=== PATIENT | male | born 1960 | race American Indian/Alaskan Native ===

== ENCOUNTER 2020-11-20 00:07 | Emergency (ER) | payer SELFPAY ==
[2020-11-20] MEDS ORDERED: ONDANSETRON 4 MG/2 ML INJ IV ONE ×2 (00:13→01:50)
[2020-11-20] MEDS ORDERED: KETOROLAC 30 MG/1 ML INJ IV ONE (00:13)
[2020-11-20] MEDS ORDERED: SODIUM CHLORIDE 0.9% 1000 ML 1,000 ML IV ONE (00:13)
--- NOTE | 2020-11-20 00:16 | Event Note ---
ED Screening Note Date of service: 11/20/20 Time: 00:14 ED Screening Note: Pt is a 59 y/o w/m with hx of renal stone, who presents for right flank pain with dysuria x this afternoon. 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 for evaluation. last void 1 hr ago, with some dysuria This initial assessment/diagnostic orders/clinical plan/treatment(s) is/are subject to change based on patients health status, clinical progression and re- assessment by fellow clinical providers in the ED. Further treatment and workup at subsequent clinical providers discretion. Patient/guardian urged not to elope from the ED as their condition may be serious if not clinically assessed and managed. Initial orders include:
[2020-11-20 01:09] LABS: Bilirubin,Urine NEG (Negative); Blood,Urine LG (Negative); Color,Urine Yellow (Yellow); Hyaline Casts,Urine 4 /LPF; Mucus,Urine FEW /HPF; Protein,Urine <15 mg/dL mg/dL (Negative); Urobilinogen,Urine < 2.0 mg/dL (<2.0)
--- NOTE | 2020-11-20 01:11 | Cat Scan Report ---
CT ABDOMEN AND PELVIS WITHOUT CONTRAST INDICATION: RIGHT sided flank pain with Dysuria, history of urolithiasis CONTRAST: Without IV COMPARISON: None available. All CT scans at this location are performed using CT dose reduction for ALARA by means of automated e xposure control. FINDINGS: Lung bases are clear of infiltrates. No pneumoperitoneum is seen. No significant abdominal wall herniation is noted. No free fluid is seen. No lymphadenopathy is noted. Mild lower abdominal ao rtic ectasia is seen only to a diameter 2.8 cm. Mild fatty infiltration of the liver is noted without obvious focal mass. Liver is enlarged and has a length of 22 cm. Spleen appears within normal limits . Pancreas shows mild fatty infiltration. Gallbladder is contracted but shows no obvious acute abnorm alities or calculi. No biliary dilatation is seen. No evidence of bowel obstruction is noted. Appendi x appears within normal limits. No focal inflammatory changes are seen. Mild colonic diverticulosis i s seen without evidence of diverticulitis. Small probable cyst is seen in the midportion of the left kidney. Left kidney shows minimal nephrolit hiasis with tiny punctate calculi in the mid to lower portions. The right kidney shows scattered tiny calculi in the mid lower portions as well as a calculus in the lower pole measuring 10 mm. Edema is seen surrounding the right kidney and upper ureter. The right ureter is slightly prominent compared t o the left though I do not see a calculus in the ureter or the urinary bladder. Urinary bladder is mo stly decompressed. Prostate and seminal vesicles appear within normal limits. IMPRESSION: 1. Findings on the right suggest recent passage of a calculus without an obvious obstructing lesion s een at this time 2. Bilateral nephrolithiasis, worse on the right Signer Name: Juan M Guerrero MD Signed: 11/20/2020 1:06 AM Workstation Name: [id number]
[2020-11-20 01:25] LABS: RBC,Urine > 182.0 /HPF (0.0-6.0)
[2020-11-20 01:31] LABS: Basophils % (Auto) 0.3 % (0.0-1.8); Eosinophils # (Auto) 0.1 K/mm3 (0.0-0.4); Eosinophils % (Auto) 0.7 % (0.0-4.3); Hematocrit 40.4 % (35.5-45.6); Hemoglobin 13.6 gm/dl (11.8-15.2); Lymphocytes # (Auto) 1.7 K/mm3 (1.2-5.4); Mean Corpuscular HGB Conc 34 % (32-34); Mean Corpuscular Volume 84 fl (84-94); Monocytes # (Auto) 0.8 K/mm3 (0.0-0.8); Monocytes % (Auto) 6.8 % (0.0-7.3); Platelet Count 218 K/mm3 (140-440); Red Cell Distribution Width 13.8 % (13.2-15.2)
[2020-11-20] MEDS ORDERED: oxyCODONE /ACETAMINOPHEN 5-325MG TAB PO ONE (01:50)
[2020-11-20] MEDS ORDERED: MORPHINE 4 MG/1 ML INJ IV ONE (01:50)
[2020-11-20] MEDS ORDERED: TAMSULOSIN 0.4 MG CAP PO ONE (01:51)
[2020-11-20 01:58] LABS: Alanine Aminotransferase 21 units/L (7-56); Albumin 4.1 g/dL (3.9-5); BUN/Creatinine Ratio 14; Blood Urea Nitrogen 21 mg/dL (9-20); Calcium 9.2 mg/dL (8.4-10.2); Hemolysis Index 11
--- NOTE | 2020-11-20 01:58 | Emergency Department Report ---
ED Male HPI - General Chief complaint: Abdominal Pain Stated complaint: KIDNEY PAIN Time Seen by Provider: 11/20/20 01:45 Source: patient Mode of arrival: Ambulatory Limitations: No Limitations - History of Present Illness Initial comments: Chief complaint: "I think I have a kidney stone." HPI: Is a 59-year-old male with history of tobacco dependence and kidney stone presents with sudden onset of right stabbing flank pain. The pain awakened him from sleep. 10 out of 10 stabbing pain with radiation to the lower abdomen. He also had the urgency to urinate. He was only able to dribble out a little urine. Prior to going to sleep he was in his normal state of health. He denies preceding fever chest pain shortness of breath cough. His friend drove him to the emergency department. Past medical history includes kidney stone, cervical disc disease requiring 2 neck fusions. Patient does smoke tobacco. He lives in [facility]. His PCP is Dr. Adair. He has . 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 MD Complaint: other (Flank pain urgency to urinate) -: Sudden, This evening Location: right flank Severity: severe Severity scale (0 -10): 10 Quality: stabbing Consistency: other (Markedly improved after ketorolac, pain is now 10 out of 10) Improves with: medication (Medication IV ketorolac, pain is now 10 out of 10) Worsens with: none other (Urgency to urinate) - Related Data Previous Rx's Medication Instructions Recorded Last Taken Type Promethazine [Phenergan] 25 mg PO Q6HR PRN #10 tab 11/20/20 Unknown Rx Tamsulosin [Flomax] 0.4 mg PO QDAY 7 Days #7 cap 11/20/20 Unknown Rx oxyCODONE /ACETAMINOPHEN [Percocet 1 tab PO Q6HR PRN #10 tablet 11/20/20 Unknown Rx 5/325] Allergies Allergy/AdvReac Type Severity Reaction Status Date / Time No Known Allergies Allergy Verified 11/20/20 00:13 ED Review of Systems ROS: Stated complaint: KIDNEY PAIN Other details as noted in HPI Comment: All other systems reviewed and negative Constitutional: denies: fever, malaise Respiratory: denies: cough, shortness of breath Gastrointestinal: denies: abdominal pain, nausea, vomiting Genitourinary: urgency ED Past Medical Hx - Past Medical History Previous Medical History?: Yes Hx Kidney Stones: Yes Additional medical history: Cervical disc disease - Surgical History Past Surgical History?: Yes Additional Surgical History: neck fusions x2 - Social History Smoking Status: Current Every Day Smoker - Medications Home Medications: Home Medications Medication Instructions Recorded Confirmed Last Taken Type Promethazine [Phenergan] 25 mg PO Q6HR PRN #10 tab 11/20/20 Unknown Rx Tamsulosin [Flomax] 0.4 mg PO QDAY 7 Days #7 cap 11/20/20 Unknown Rx oxyCODONE /ACETAMINOPHEN [Percocet 1 tab PO Q6HR PRN #10 tablet 11/20/20 Unknown Rx 5/325] ED Physical Exam - General Limitations: No Limitations General appearance: alert, in no apparent distress, other (Pleasant talkative no acute distress appears comfortable) - Head Head exam: Present: atraumatic, normocephalic - Eye Eye exam: Present: normal appearance - ENT ENT exam: Present: mucous membranes moist - Neck Neck exam: Present: normal inspection, full ROM - Respiratory Respiratory exam: Present: normal lung sounds bilaterally. Absent: respiratory distress, wheezes, rales, rhonchi, stridor - Cardiovascular Cardiovascular Exam: Present: regular rate, normal rhythm, normal heart sounds. Absent: systolic murmur, diastolic murmur, rubs, gallop - GI/Abdominal GI/Abdominal exam: Present: soft, normal bowel sounds. Absent: distended, tenderness, guarding, rebound - Rectal Rectal exam: Present: deferred - Extremities Exam Extremities exam: Present: normal inspection - Back Exam Back exam: Present: normal inspection, full ROM, muscle spasm (Right sided lower muscle spasm). Absent: tenderness, CVA tenderness (R), CVA tenderness (L) - Neurological Exam Neurological exam: Present: alert, oriented X3 - Psychiatric Psychiatric exam: Present: normal affect, normal mood - Skin Skin exam: Present: warm, dry, intact, normal color. Absent: rash ED Course Vital Signs 11/20/20 11/20/20 11/20/20 00:09 00:18 01:36 Temperature 97.6 F 98.3 F 98.0 F Pulse Rate 89 113 H 93 H Respiratory 18 18 20 Rate Blood Pressure 141/68 124/102 Blood Pressure 125/52 [Right] O2 Sat by Pulse 96 100 95 Oximetry 11/20/20 11/20/2021 01:37 01:59 02:00 Temperature Pulse Rate Respiratory 20 Rate Blood Pressure Blood Pressure [Right] O2 Sat by Pulse 95 95 95 Oximetry 11/20/20 11/20/20 11/20/20 02:15 02:30 02:45 Temperature Pulse Rate 84 78 84 Respiratory 21 18 18 Rate Blood Pressure 115/58 102/56 102/56 Blood Pressure [Right] O2 Sat by Pulse 96 94 90 Oximetry 11/20/20 03:01 Temperature Pulse Rate 89 Respiratory 13 Rate Blood Pressure 102/56 Blood Pressure [Right] O2 Sat by Pulse 97 Oximetry ED Medical Decision Making - Lab Data Result diagrams: 11/20/20 00:45 11/20/20 00:45 - Medical Decision Making Renal colic: CT reveals evidence of likely passed calculus. Patient's pain is now 2 out of 10. He was given urine strainer. Prescribed Flomax Percocet promethazine. Strongly encouraged to follow-up with his PCP once he returns to [facility]. No evidence of sepsis or SIRS. I do not suspect infection. Urinalysis reveals hematuria. No evidence of UTI on urinalysis. mild leukocytosis and mild renal insufficiency: inconsequential at this junction. Patient is pain free. 0/10 pain. He plans to obtain urology f/u through PCP. rx: flomax, promethazine, percocet Mr. Bennett verbalized understanding of return precautions, especially fever, vomiting severe pain Critical care attestation.: If time is entered above; I have spent that time in minutes in the direct care of this critically ill patient, excluding procedure time. ED Disposition Clinical Impression: Renal colic on right side, Kidney stone on right side Disposition: DC-01 TO HOME OR SELFCARE Is pt being admited?: No Does the pt Need Aspirin: No Condition: Stable Instructions: Kidney Stones, [id number] Prescriptions: Tamsulosin [Flomax] 0.4 mg PO QDAY 7 Days #7 cap oxyCODONE /ACETAMINOPHEN [Percocet 5/325] 1 tab PO Q6HR PRN #10 tablet PRN Reason: Pain Promethazine [Phenergan] 25 mg PO Q6HR PRN #10 tab PRN Reason: Nausea Referrals: PRIMARY CARE,MD [Primary Care Provider] - 3-5 Days
[2020-11-20 03:04] VITALS: BP 102/56
== END 2020-11-20 03:15 | disposition home or self-care (01) ==
LOC: ED 00:07
DX: N20.0 Calculus of kidney (principal); F17.200 Nicotine dependence, unspecified, uncomplicated; Z79.899 Other long term (current) drug therapy
CPT/HCPCS: 36415; 74176; 80053; 81001; 85025; 96361; 96374; 96375; 96376; 99284; J1885; J2270; J2405; J7030